=== PATIENT | female | born 1965 | race Caucasian/White ===

== ENCOUNTER → 2018-04-29 | Day surgery (SDC) | payer OTHER ==
[~2018-04-29] MED LIST: B-122500 MCG; CALCIUM CARBON500 MG PO; CRESTOR10 MG; D3 + K2 DOTS 11 EACH; FENTANYL CITRATE/PF 100MCG/2 ML INJ ONE; FISH OIL 1,2001 EACH PO; HYOSCYAMINE SULFATE 0.5 MG/ML AMP ONE; LEG CRAMPS PO; LIDOCAINE HCL 2% LOCAL INJ 5 ML SDV VIAL INJ ONE; MAGNESIUM OXID400 MG PO; MIDAZOLAM HCL 2 MG/2 ML VIAL ONE; MULTI-VITAMIN1 EACH; ONDANSETRON HCL INJ 2 MG/ML VIAL ONE; POTASSIUM PO; PROBIOTIC & AC1 EACH PO; PROPOFOL IV EMULSION 10 MG/ML 50 ML VIAL ONE; RANITIDINE HCL150 M1; REMIFEMIN PO
--- NOTE | 2018-04-29 11:12 | Operative Report ---
DATE OF PROCEDURE: April 29, 2018 REFERRING PHYSICIAN: Dr. Alexsander John. PROCEDURE PERFORMED: Esophagogastroduodenoscopy with esophageal dilatation and biopsies and colonoscopy with polypectomy and biopsies. INDICATIONS FOR ESOPHAGOGASTRODUODENOSCOPY: Dysphagia, history of acid reflux. INDICATIONS FOR COLONOSCOPY: Colonoscopy cancer screening, personal history of colon polyps, diarrhea. MEDICATION: Patient was done under MAC. Please see anesthesiologist's note. PROCEDURE: With patient in the left lateral decubitus position, flexible fiberoptic Olympus gastroscope was introduced into the esophagus under direct visualization without any difficulty. There was some patchy erythema noted in distal esophagus. A mild stricture was noted at the GE junction that was dilated to a size 52-Amharic Ochoa. The scope was then advanced with ease into the stomach and mucosa overlying the antrum and the body revealed some patchy erythema and low-grade to moderate edema and biopsies were obtained and sent to stain for H. pylori. Several gastric polyps were noted in the body of the stomach. They were hyperplastic appearing and some were partially excised with cold biopsy forceps. The pylorus was of normal contour and shape. Was intubated with ease and the scope was advanced all the way to the 2nd portion of the duodenum. The scope was then withdrawn slowly and mucosa overlying the proximal 2nd portion appeared to be within normal limits. Biopsies were obtained to rule out sprue. Mucosa overlying the duodenal bulb appeared to be within normal limits. The scope was then withdrawn back into the stomach and retroflexed and mucosa overlying the fundus and the cardia appeared to be within normal limits. The scope was then straightened out. It was subsequently withdrawn. Patient tolerated the procedure well. IMPRESSION: 1. Distal esophagitis, mild. 2. 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 3. Gastritis biopsied. Biopsies sent stain for H. pylori. 4. Gastric polyps, body, hyperplastic appearing, some partially excised with cold biopsy forceps. 5. Rule out sprue. PLAN: Follow up histology. Initiate Protonix 40 mg 1 p.o. q.a.m. a.c. PROCEDURE: Patient was then turned around and after adequate lubrication of the anal canal a flexible fiberoptic Olympus colonoscope was inserted into the rectum with ease and advanced all the way to the cecum. Mucosa overlying the cecum appeared to be within normal limits. The ileocecal valve was intubated and the scope was advanced into the terminal ileum. Biopsies were obtained. The scope was then withdrawn back into the colon. It was then withdrawn slowly. Mucosa overlying the ascending appeared to be within normal limits. One polyp was snared from the transverse colon. There was some patchy mild inflammatory changes noted in the left colon and random biopsies were obtained. One polyp was hot biopsied from the rectum. The scope was then retroflexed into the distal rectum and the area around the dentate line appeared to be within normal limits. The scope was then straightened out. It was subsequently withdrawn after securing an adequate stool specimen that was sent for the appropriate stool studies. Patient tolerated the procedure well. IMPRESSION 1. Transverse colon polyp snared. 2. Mild patchy left-sided colitis. 3. Rectal polyp, hot biopsied. PLAN: Follow up histology. Follow up stool studies. Initiate VSL#3 one p.o. daily and Bentyl 10 mg 1 p.o. t.i.d. Patient might benefit from a followup colonoscopy in 3 years. Job#: [id number] cc:ALEXSANDER JOHN MD
[2018-04-29 13:59] LABS: C DIFFICILE TOXIN A&B AMP PROB NEGATIVE (NEGATIVE); WBC,FECAL (FECAL LACTOFERRIN) NEGATIVE (NEGATIVE)
== END | disposition home or self-care (01) ==
LOC: OR 07:41
PROVIDERS: ATTEND Internal Medicine Gastroenterology
DX: K51.50 Left sided colitis without complications (principal); K63.5 Polyp of colon; K62.1 Rectal polyp; K31.7 Polyp of stomach and duodenum; K22.2 Esophageal obstruction; K29.70 Gastritis, unspecified, without bleeding; K20.9 Esophagitis, unspecified; K21.9 Gastro-esophageal reflux disease without esophagitis; R05 Cough; E78.5 Hyperlipidemia, unspecified; G83.14 Monoplegia of lower limb affecting left nondominant side; Z01.810 Encounter for preprocedural cardiovascular examination; Z68.29 Body mass index [BMI] 29.0-29.9, adult
CPT/HCPCS: 43239; 43450; 45384; 45385; 81025; 83630; 83993; 87045; 87177; 87328; 87493; 93005; J1980; J2001; J2250; J2405; 45380

== ENCOUNTER → 2022-03-27 | Day surgery (SDC) | payer OTHER ==
[~2022-03-27] MED LIST changes: -HYOSCYAMINE SULFATE 0.5 MG/ML AMP ONE; +HYOSCYAMINE SULFATE 0.5 MG/ML INJ ONE; -ONDANSETRON HCL INJ 2 MG/ML VIAL ONE; +PROPOFOL IV EMULSION 10 MG/ML 20 ML VIAL ONE; -PROPOFOL IV EMULSION 10 MG/ML 50 ML VIAL ONE; +PROTONIX20 MG PO
[2022-03-27 12:55] VITALS: BP 126/79
== END | disposition home or self-care (01) ==
LOC: ENDO 09:40
PROVIDERS: ATTEND Internal Medicine Gastroenterology
DX: K20.90 Esophagitis, unspecified without bleeding (principal); Z86.010 Personal history of colon polyps; K31.7 Polyp of stomach and duodenum; K29.50 Unspecified chronic gastritis without bleeding; K21.9 Gastro-esophageal reflux disease without esophagitis; K58.9 Irritable bowel syndrome, unspecified; K59.09 Other constipation; K44.9 Diaphragmatic hernia without obstruction or gangrene; K64.8 Other hemorrhoids; Z71.3 Dietary counseling and surveillance; G47.33 Obstructive sleep apnea (adult) (pediatric); E78.5 Hyperlipidemia, unspecified; R00.1 Bradycardia, unspecified; F41.9 Anxiety disorder, unspecified; Z01.810 Encounter for preprocedural cardiovascular examination; Z01.812 Encounter for preprocedural laboratory examination; Z20.822 Contact with and (suspected) exposure to COVID-19; Z79.899 Other long term (current) drug therapy; Z68.28 Body mass index [BMI] 28.0-28.9, adult
CPT/HCPCS: 43239; 43450; 45378; 93005; C9113; J1980; J2001; J2250; J2704; J3010; U0002